=== PATIENT | male | born 1995 | race Asian ===

== ENCOUNTER 2019-08-29 10:09 | Emergency (ER) | payer OTHER ==
[~2019-08-29] VITALS: Ht 172.7 cm; Wt 83.9 kg
[2019-08-29 10:10] VITALS: BP 127/84
--- NOTE | 2019-08-29 10:50 | NUR ---
Patient discharged to home in stable condition. Written and verbal after care instructions given. Patient verbalizes understanding of instruction.
== END 2019-08-29 10:50 | disposition home or self-care (01) ==
LOC: ER 10:11
DX: Z03.818 Encounter for observation for suspected exposure to other biological agents ruled out (principal)
CPT/HCPCS: 99283; U0003